=== PATIENT | male | born 1995 | race African-American/Black ===

== ENCOUNTER 2017-08-04 07:43 | Emergency (ER) | payer OTHER ==
[~2017-08-04] VITALS: Ht 175.3 cm; Wt 72.7 kg
--- NOTE | 2017-08-04 09:58 | REP ---
SCROTAL ULTRASOUND: Real-time sonographic evaluation of the scrotum and contents are performed. The testicles are normal in size and echotexture, right testicle measuring 4.8 x 2.8 x 3.2 cm and the left testicle 5.5 x 2.3 x 3.0 cm. There is no testicular mass or torsion. Blood flow is seen in each testicle with duplex Doppler evaluation, RI right testicle is 0.56 and the left testicle 0.68. There is a cyst on the head of the left epididymis 4 mm in diameter containing low level echoes. A few tiny calcifications are seen in the upper pole of the right testicle. There is a small right hydrocele. IMPRESSION: No testicular mass or torsion. Small right hydrocele. Signed by Marco A Zavala MD 08/05/2017 07:48 P
[2017-08-04 10:19] VITALS: BP 152/64
== END 2017-08-04 10:20 | disposition home or self-care (01) ==
LOC: M ED 07:43
DX: N43.3 Hydrocele, unspecified (principal); Z72.0 Tobacco use